=== PATIENT | female | born 2000 | race Caucasian/White ===

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

== ENCOUNTER 2019-04-12 19:24 | Emergency (ER) | payer OTHER ==
[~2019-04-12] VITALS: Ht 157.5 cm; Wt 72.0 kg
[~2019-04-12 19:24] MED LIST: CEPH-443 PO; IBUP-1561 PO
[2019-04-12 19:28] VITALS: Ht 157.5 cm; Wt 72.0 kg
[2019-04-12] MEDS ORDERED: AZIT500T5 PO (21:45)
--- NOTE | 2019-04-12 21:54 | ERD ---
ER Documentation Chief Complaint Chief Complaint WATERY DIARRHEA WITH LITTLE BLOOD SEEN, S/P TRIP TO [facility] This is a 18-year-old female presents to the ED with complaints of 1 day of w atery diarrhea since this morning. Patient states there were some blood-tinged stools. She states she had a subjective fever this morning but did not take her temperature. She states she was recently in [facility] and return on Thursday. She states her friend is sick with similar symptoms. She has some associated diffuse abdominal cramping. No urinary symptoms. No recent antibiotics. No other complaints. ROS All systems reviewed and are negative except as per history of present illness. Medications Home Meds Active Scripts Azithromycin* (Azithromycin*) 500 Mg Tablet, 500 MG PO DAILY for 3 Days, #6 TAB Prov:GREER DAWSON PA-C 04/12/19 Ibuprofen* (Motrin*) 400 Mg Tab, 400 MG PO Q8 PRN for PAIN, #30 TAB Prov:MITCHELL BHAKTA MD 08/22/17 Cephalexin* (Keflex*) 500 Mg Capsule, 500 MG PO QID for 5 Days, #19 CAP Prov:MITCHELL BHAKTA MD 08/22/17 Allergies Allergies: Coded Allergies: No Known Allergy (Unverified , 08/21/17) PMhx/Soc Medical and Surgical Hx: pt denies Medical Hx, pt denies Surgical Hx Hx Alcohol Use: No Hx Substance Use: No Hx Tobacco Use: No Smoking Status: Never smoker Physical Exam Vitals Vital Signs Date Temp Pulse Resp B/P (MAP) Pulse Ox O2 O2 Flow FiO2 Time Delivery Rate 04/12/19 98.5 108 20 143/86 96 19:28 (105) Physical Exam Const: No acute distress Head: Atraumatic Eyes: Normal Conjunctiva ENT: Normal External Ears, Nose and Mouth. Mucous membranes. Neck: Full range of motion. No meningismus. Resp: Clear to auscultation bilaterally Cardio: Regular rate and rhythm, no murmurs Abd: Soft, non tender, no rebound, no guarding. Non distended. + Hyperactive bowel sounds. Skin: No petechiae or rashes Back: No midline or flank tenderness Ext: No cyanosis, or edema Neur: Awake and alert Psych: Normal Mood and Affect Procedures/MDM 18-year-old female presents with watery diarrhea after traveling to [facility]. She has no fever here. Abdominal exam is benign. No evidence of dehydration. Will treat for presumed infectious diarrhea. Patient provided outpatient antibiotics for azithromycin. I recommended continued hydration and fever control. I have low suspicion for appendicitis, obstruction or any other emergent pathology. Recommended follow up with the PCP this week, return here for any new or worsening symptoms. PRESCRIPTIONS: Azithromycin Departure Diagnosis: Primary Impression: Diarrhea Diarrhea type: presumed infectious Qualified Codes: R19.7 - Diarrhea, unspecified Condition: Stable Patient Instructions: Treating Diarrhea [facility]errals: [facility] YOU HAVE RECEIVED A MEDICAL SCREENING EXAM AND THE RESULTS INDICATE THAT YOU DO NOT HAVE A CONDITION THAT REQUIRES URGENT TREATMENT IN THE EMERGENCY DEPARTMENT. FURTHER EVALUATION AND TREATMENT OF YOUR CONDITION CAN WAIT UNTIL YOU ARE SEEN IN YOUR DOCTORS OFFICE WITHIN THE NEXT 1-2 DAYS. IT IS YOUR RESPONSIBILITY TO MAKE AN APPOINTMENT FOR FOLOW-UP CARE. IF YOU HAVE A PRIMARY DOCTOR --you should call your primary doctor and schedule an appointment IF YOU DO NOT HAVE A PRIMARY DOCTOR YOU CAN CALL OUR PHYSICIAN REFERRAL HOTLINE AT IF YOU CAN NOT AFFORD TO SEE A PHYSICIAN YOU CAN CHOSE FROM THE FOLLOWING [facility] [address] [facility]. [facility] [address] [facility] [facility] [address] [facility] [facility] [address] [facility]. [facility] [address] [facility] [facility]. [address] [facility] YOU HAVE RECEIVED A MEDICAL SCREENING EXAM AND THE RESULTS INDICATE THAT YOU DO NOT HAVE A CONDITION THAT REQUIRES URGENT TREATMENT IN THE EMERGENCY DEPARTMENT. FURTHER EVALUATION AND TREATMENT OF YOUR CONDITION CAN WAIT UNTIL YOU ARE SEEN IN YOUR DOCTORS OFFICE WITHIN THE NEXT 1-2 DAYS. IT IS YOUR RESPONSIBILITY TO MAKE AN APPOINTMENT FOR FOLOW-UP CARE. IF YOU HAVE A PRIMARY DOCTOR --you should call your primary doctor and schedule and appointment IF YOU DO NOT HAVE A PRIMARY DOCTOR YOU CAN CALL OUR PHYSICIAN REFERRAL HOTLINE AT . IF YOU CAN NOT AFFORD TO SEE A PHYSICIAN YOU CAN CHOSE FROM THE FOLLOWING [facility] INSTITUTIONS: [facility] [address] [place] [address] [facility] [address] [place] [address] [facility] [address] [place] [address] Additional Instructions: Keep to a simple diet for the next 1 week. I recommend chills, vegetables, potatoes, rice for the next few days. He can advance her diet as tolerated. Keep yourself hydrated with lots of water and Pedialyte. Return here for any new or worsening symptoms. GREER DAWSON PA-C Apr 12, 2019 21:54
[2019-04-12 21:55] VITALS: BP 132/77; PULSE 97; RESP 16
== END 2019-04-12 21:55 | disposition home or self-care (01) ==
LOC: FTE 19:24
DX: R19.7 Diarrhea, unspecified (principal)
CPT/HCPCS: 99283